=== PATIENT | male | born 1985 | race African-American/Black ===

== ENCOUNTER 2016-10-11 10:07 | Emergency (ER) | payer SELFPAY ==
[~2016-10-11] VITALS: Ht 180.3 cm; Wt 109.0 kg
[2016-10-11] MEDS ORDERED: IBUPROFEN 400MG TABLET PO ONE (12:00)
[2016-10-11 12:08] VITALS: BP 117/82
== END 2016-10-11 13:34 | disposition home or self-care (01) ==
LOC: ER 11:30 → EDSEX 11:30 → ER 13:34
DX: M79.671 Pain in right foot (principal); M79.89 Other specified soft tissue disorders; F17.210 Nicotine dependence, cigarettes, uncomplicated
CPT/HCPCS: 73630; 99284